=== PATIENT | female | born 1965 | race Caucasian/White ===

== ENCOUNTER 2017-10-12 09:32 | Day surgery (SDC) | payer OTHER ==
[2017-10-12 09:41] VITALS: TEMP 97.9; BMI 26.2
--- NOTE | 2017-10-12 10:38 | PDOC ---
History of Present Illness - General Chief Complaint: Wound Stated Complaint: EVALUATION (PCP SENT) Time Seen by Provider: 10/12/17 10:10 - History of Present Illness Initial Comments: 10/12/17 10:32 51 F with h/o HTN presents to ER for surgical evaluation of R upper back mass. Pt reports feeling a lump in her back for the past year. Denies any pain or redness to the area. States that the lump is soft and slightly mobile. Pt denies any other masses anywhere. No weight loss, no night sweats. Pt has been communicating with surgeon Dr. Guajardo, whose sent pt to ER for possible surgical intervention today. Past History - Past Medical History Allergies/Adverse Reactions: Allergies Allergy/AdvReac Type Severity Reaction Status Date / Time No Known Allergies Allergy Verified 10/12/17 09:37 Home Medications: Ambulatory Orders Hydrochlorothiazide [Hctz -] 12.5 mg PO DAILY 10/12/17 COPD: No DVT: No HTN: Yes - Surgical History Abdominal Surgery: Yes ("ovary removed") Cholecystectomy: Yes - Immunization History Immunization Up to Date: Yes - Suicide/Smoking/Psychosocial Hx Smoking History: Never smoked Have you smoked in the past 12 months: No Information on smoking cessation initiated: No Hx Alcohol Use: No Drug/Substance Use Hx: No Substance Use Type: None Review of Systems - Review of Systems Comments:: 10/12/17 10:37 "GENERAL/CONSTITUTIONAL: No fever or chills. No weakness. HEAD, EYES, EARS, NOSE AND THROAT: No change in vision. No ear pain or discharge. No sore throat. CARDIOVASCULAR: No chest pain or shortness of breath. RESPIRATORY: No cough, wheezing, or hemoptysis. GASTROINTESTINAL: No nausea, vomiting, diarrhea or constipation. GENITOURINARY: No dysuria, frequency, or change in urination. MUSCULOSKELETAL: No joint or muscle swelling or pain. No neck or back pain. SKIN: + Lump to R upper back NEUROLOGIC: No headache, vertigo, loss of consciousness, or change in strength/ sensation. ENDOCRINE: No increased thirst. No abnormal weight change. HEMATOLOGIC/LYMPHATIC: No anemia, easy bleeding, or history of blood clots. ALLERGIC/IMMUNOLOGIC: No hives or skin allergy. " *Physical Exam - Vital Signs Last Vital Signs Temp Pulse Resp BP Pulse Ox 97.9 F 66 17 126/82 100 10/12/17 09:37 10/12/17 09:37 10/12/17 09:37 10/12/17 09:37 10/12/17 09:37 - Physical Exam Comments: 10/12/17 10:38 "GENERAL: Awake, alert, and fully oriented, in no acute distress HEAD: No signs of trauma EYES: PERRLA, EOMI, sclera anicteric, conjunctiva clear ENT: Auricles normal inspection, hearing grossly normal, nares patent, oropharynx clear without exudates. Moist mucosa NECK: Nontender, no stepoffs, Normal ROM, supple, no lymphadenopathy, JVD, or masses LUNGS: Breath sounds equal, clear to auscultation bilaterally. No wheezes, and no crackles HEART: Regular rate and rhythm, normal S1 and S2, no murmurs, rubs or gallops ABDOMEN: Soft, nontender, normoactive bowel sounds. No guarding, no rebound. No masses EXTREMITIES: Normal range of motion, no edema. No clubbing or cyanosis. No cords, erythema, or tenderness NEUROLOGICAL: Cranial nerves II through XII intact. 5/5 strength and sensation in all extremities, Normal speech, normal gait SKIN: 2cm soft mobile mass to R upper back, no tenderness, no fluctuance/ induration/erythema. Skin warm, Dry, normal turgor, no rashes or lesions noted. " Medical Decision Making - Medical Decision Making 10/12/17 10:39 51 F with likely lipoma of upper back x 1 year. Pt with no s/s abscess or infectious process. No s/s of malignancy. Pt was sent in by Dr. Guajardo for OR today. - pre-op labs 10/12/17 10:[address] Guajardo, who has confirmed that pt is to be admitted for surgery. Pt will be admitted to satellite *DC/Admit/Observation/Transfer Diagnosis at time of Disposition: Lipoma - Discharge Dispostion Admit: Yes - Referrals - Patient Instructions - Post Discharge Activity - Attestations Physician Attestion: 10/12/17 10:50 I, Dr. Mayo Issa MD, attest that this document has been prepared under my direction and personally reviewed by me in its entirety. I further attest, that it accurately reflects all work, treatment, procedures and medical decision -making performed by me.
[2017-10-12] MEDS ORDERED: MIDAZOLAM HCL 2 MG/2 ML SINGLE DOSE VIAL ONE (10:50)
[2017-10-12] MEDS ORDERED: LIDOCAINE 1%/EPI 1:100000 (20 ML MULTI DOSE VIAL) ONE (10:54)
[2017-10-12 11:07] LABS: BASO % 0.7 % (0-2.0); EOS % 2.7 % (0-4.5); HEMATOCRIT 39.9 % (32.4-45.2); HEMOGLOBIN 12.6 GM/dL (10.7-15.3); LYMPH % 36.1 % (8-40); MCHC 31.6 g/dl (32.0-36.0); MEAN CELL VOLUME 69.8 fl (80-96); MEAN PLT VOLUME 8.4 fl (7.5-11.1); MONO % 8.6 % (3.8-10.2); NEUT % 51.9 % (42.8-82.8); PLATELET COUNT 267 K/MM3 (134-434); RBC 5.71 M/mm3 (3.60-5.2); RDW 14.4 % (11.6-15.6); WHITE BLOOD COUNT 4.9 K/mm3 (4.0-10.0)
[2017-10-12 11:17] LABS: ALBUMIN 3.9 g/dl (3.4-5.0); ALK PHOS 75 U/L (45-117); ANION GAP 5 (8-16); BILIRUBIN,TOTAL 0.5 mg/dL (0.2-1.0); BLOOD UREA NITROGEN 15 mg/dL (7-18); CALCIUM 9.3 mg/dL (8.5-10.1); CHLORIDE 107 mmol/L (98-107); CO2 29 mmol/L (21-32); CREATININE 0.7 mg/dL (0.55-1.02); GLUCOSE,RANDOM 85 mg/dL (74-106); POTASSIUM 4.1 mmol/L (3.5-5.1); SGOT/AST 19 U/L (15-37); SGPT/ALT 44 U/L (12-78); SODIUM 141 mmol/L (136-145); TOT PROT 7.5 g/dl (6.4-8.2)
[2017-10-12] MEDS ORDERED: ceFAZolin SODIUM 1 GM VIAL IVPB ONE (11:23)
[2017-10-12] MEDS ORDERED: LIDOCAINE 1%/EPI 1:100000 (50 ML MULTI DOSE VIAL) INF ONE (11:26)
[2017-10-12 11:31] LABS: INR 1.2 (0.82-1.09); PROTHROMBIN TIME (PATIENT) 13.6 SEC (9.98-11.88)
[2017-10-12 11:33] LABS: ACTIVATED PTT 31.4 SECONDS (26.9-34.4)
--- NOTE | 2017-10-12 12:43 | EKG ---
Test Reason : Blood Pressure : / mmHG Vent. Rate : 059 BPM Atrial Rate : 059 BPM P-R Int : 166 ms QRS Dur : 082 ms QT Int : 426 ms P-R-T Axes : 050 019 016 degrees QTc Int : 421 ms SINUS BRADYCARDIA OTHERWISE NORMAL ECG WHEN COMPARED WITH ECG OF 22-JAN-2011 11:23, NO SIGNIFICANT CHANGE WAS FOUND Confirmed by ARCADIO COPELAND MD ([id number]) on 10/12/2017 12:42:40 PM Referred By: Confirmed By:ARCADIO COPELAND MD
--- NOTE | 2017-10-12 13:47 | CONSULT ---
Consult Consult Specialty:: Surgery Reason for Consultation:: Back mass with pain - History of Present Illness History of Present Illness: 51 female presents to the ER for back mass causing pain No fevers/chills - History Source History Provided By: Patient Limitations to Obtaining History: No Limitations - Alcohol/Substance Use Hx Alcohol Use: No - Smoking History Smoking history: Never smoked Have you smoked in the past 12 months: No Home Medications - Allergies Allergies/Adverse Reactions: Allergies Allergy/AdvReac Type Severity Reaction Status Date / Time No Known Allergies Allergy Verified 10/12/17 09:37 - Home Medications Home Medications: Ambulatory Orders Hydrochlorothiazide [Hctz -] 12.5 mg PO DAILY 10/12/17 Family Disease History - Family Disease History Family History: Unremarkable Review of Systems - Review of Systems Constitutional: denies: Chills, Fever Eyes: reports: No Symptoms HENT: reports: No Symptoms Neck: reports: No Symptoms Cardiovascular: denies: Chest Pain Respiratory: denies: Cough Gastrointestinal: denies: Abdominal Pain Neurological: denies: Change in LOC Pain Intensity: 2 Physical Exam Vital Signs: Vital Signs Temperature 97.9 F 10/12/17 09:37 Pulse Rate 66 10/12/17 12:32 Respiratory Rate 20 10/12/17 12:32 Blood Pressure 114/71 10/12/17 12:32 O2 Sat by Pulse Oximetry (%) 100 10/12/17 09:37 Constitutional: Yes: Calm Neck: Yes: Supple Cardiovascular: Yes: Regular Rate and Rhythm Respiratory: Yes: CTA Bilaterally Gastrointestinal: Yes: Soft. No: Tenderness Musculoskeletal: Yes: Other (Back mass- 4cm x 3cm Mild tenderness, no erythema) Neurological: Yes: Alert, Oriented Labs: CBC, BMP 10/12/17 10:50 10/12/17 10:50 Problem List - Problems (1) Mass on back Code(s): R22.2 - LOCALIZED SWELLING, MASS AND LUMP, TRUNK Assessment/Plan 51 with back mass causing pain For excision
--- NOTE | 2017-10-12 13:50 | OP ---
Operative Note - Note: Operative Date: 10/12/17 Pre-Operative Diagnosis: Back mass causing pain Operation: Excision of right back mass. 4cm x 3cm Post-Operative Diagnosis: Same as Pre-op Surgeon: Kai Guajardo Anesthesia: General Specimens Removed: Right back mass Estimated Blood Loss (mls): 5 Operative Report Dictated: Yes
[2017-10-12 14:19] VITALS: BP 133/82; PULSE 64
--- NOTE | 2017-10-13 10:04 | OP ---
DATE OF OPERATION: 10/12/217 SURGEON: Yoav Guajardo MD PREOPERATIVE DIAGNOSIS: Right back mass causing pain. POSTOPERATIVE DIAGNOSIS: Right back mass causing pain. PROCEDURE: Excision of right back mass, 4 cm x 3 cm in size. SPECIMEN: Right back mass. ESTIMATED BLOOD LOSS: 5 mL. DRAINS: None. ANESTHESIA: MAC/local. REASON FOR PROCEDURE: This 51-year-old female presented to the emergency room with back mass causing pain. She requested excision and was therefore consented for excision of her right back mass. Risks and benefits of the procedure were explained. These included bleeding, infection, recurrence of the mass, local injury including nerve injury, vessel, injury, PA, DVT, PE, and some other complications. She understood and signed informed consent. DESCRIPTION OF PROCEDURE: Patient was placed in the left lateral decubitus position. The area was prepped and draped in the usual sterile fashion. Time-out was performed. An incision was made over the level of the mass. The skin was incised, and the skin and subcutaneous tissue dissected to the level of the mass. The mass was circumferentially dissected and excised. It appeared that the mass was consistent with fatty tissue/lipoma. The specimen was sent off the field. Hemostasis was achieved using electrocautery. The wound was irrigated and suctioned until dry. Then, 3-0 Vicryl sutures were used to close the deep dermal layer, and 4-0 Biosyn was used to close the subcutaneous tissue. Sterile dressings were applied. Patient tolerated the procedure well, transferred to the recovery room in stable condition. YOAV GUAJARDO M.D. NATALIE/[id number]
--- NOTE | 2017-10-13 17:56 | PATH ---
Surgical Pathology Report Patient Name: [facility]. Rec. #: [id number] /Age/Gender: 1965 (Age: 51) / F Account: [id number] Location: AMBULATORY SURG Taken: 10/12/2017 Received: 10/12/2017 Reported: 10/13/2017 Physicians: Kai Guajardo M.D. Specimen(s) Received RIGHT BACK MASS Clinical History Lipoma Final Diagnosis BACK, RIGHT, MASS, EXCISION: MATURE FIBROADIPOSE TISSUE CONSISTENT WITH LIPOMA. Electronically Signed Britta Giron M.D. Gross Description Received in formalin labeled "right back mass," is a 4.0 x 2.5 x 1.3 cm aggregate of 2 irregular portions of yellow, lobulated adipose tissue. Sectioning reveals homogeneous yellow, smooth fat. No areas of hemorrhage or necrosis are identified. Archivist Military History sections are submitted in 2 cassettes. /10/12/2017 [place]10/12/2017
== END 2017-10-12 14:18 | disposition home or self-care (01) ==
LOC: JER 09:32 → JASUSAT 10:50
PROVIDERS: ATTEND Surgery
PROC: 0JB70ZZ Excision of Back Subcutaneous Tissue and Fascia, Open Approach (ICD-10-PCS; principal; 2017-10-12 11:00)
DX: D48.1 Neoplasm of uncertain behavior of connective and other soft tissue (principal); D17.1 Benign lipomatous neoplasm of skin and subcutaneous tissue of trunk
CPT/HCPCS: 36415; 80053; 85025; 85610; 85730; 86850; 86900; 86901; 88304-TC; 93005; 93010; 99282-25

== ENCOUNTER → 2019-08-12 | Day surgery (SDC) | payer OTHER ==
--- NOTE | 2019-08-13 17:46 | PATH ---
Surgical Pathology Report Patient Name: KEVAN IQBAL [facility]. Rec. #: [id number] /Age/Gender: 1965 (Age: 53) / F Account: [id number] Location: Taken: 08/12/2019 Received: 08/12/2019 Reported: 08/13/2019 Physicians: Coleen Cintron M.D. Specimen(s) Received LEFT BREAST CORE BIOPSY Clinical History Nonpalpable lesion Ultrasound findings: Suspicious Final Diagnosis LEFT BREAST 2-2:30, 0.6 CM MASS, ULTRASOUND GUIDED CORE BIOPSY: FRAGMENTS OF BENIGN LYMPH NODE TISSUE. SEPARATE FRAGMENTS OF BENIGN BREAST TISSUE WITH FOCAL STROMAL FIBROSIS. Electronically Signed Katherine Bernal M.D. Gross Description Received in formalin labeled "left breast 2:00-2:30," are 4 paez-yellow, cylindrical portions of fibroadipose tissue ranging from 0.7-1.2 cm in length and averaging 0.1 cm in diameter. The specimens are submitted in toto in one cassette. Time to formalin fixation: Less than one minute Total formalin fixation time: Approximately 6 hours. /08/12/2019 [facility] [place]/08/12/2019
== END | disposition home or self-care (01) ==
LOC: JMAMMO-SUR 11:19
PROVIDERS: ATTEND Internal Medicine
PROC: 0H9U3ZX Drainage of Left Breast, Percutaneous Approach, Diagnostic (ICD-10-PCS; principal; 2019-08-12)
DX: N60.32 Fibrosclerosis of left breast (principal)
CPT/HCPCS: 19083; 87899; 88305-TC; A4648

== ENCOUNTER 2019-12-16 14:55 | Emergency (ER) | payer OTHER ==
[2019-12-16 15:14] VITALS: BMI 23.8
--- NOTE | 2019-12-16 15:16 | EKG ---
Test Reason : Blood Pressure : / mmHG Vent. Rate : 065 BPM Atrial Rate : 065 BPM P-R Int : 154 ms QRS Dur : 082 ms QT Int : 414 ms P-R-T Axes : 040 -04 007 degrees QTc Int : 430 ms NORMAL SINUS RHYTHM NORMAL ECG NO PREVIOUS ECGS AVAILABLE Confirmed by Rochelle Castelan ([id number]) on 12/16/2019 3:16:36 PM Referred By: ASHLEY BOGGS Confirmed By:Rochelle Castelan
[2019-12-16] MEDS ORDERED: ACETAMINOPHEN 1000 MG/100 ML VIAL (NON FORMULARY) IVPB ONE (15:18)
[2019-12-16] MEDS ORDERED: METOCLOPRAMIDE HCL INJECTION 10 MG/2 ML VIAL IVPUSH ONE (15:18)
[2019-12-16] MEDS ORDERED: SODIUM CHLORIDE 0.9% 1000 ML INFUS.BAG IV ONE (15:18)
[2019-12-16] MEDS ORDERED: ALBUTEROL SO4 2.5/IPRATROPIUM 0.5 INH SOL 3 ML VIAL.NEB. NEB ONE ×2 (15:18→15:42)
[2019-12-16] MEDS ORDERED: ACETAMINOPHEN INJECTION 100 ML IVPB ONE (15:42)
[2019-12-16] MEDS ORDERED: METOCLOPRAMIDE HCL INJECTION 10 MG/2 ML VIAL ONE (15:42)
[2019-12-16 15:43] LABS: BASO % 0.5 % (0-2.0); EOS % 4.6 % (0-4.5); HEMATOCRIT 36.6 % (32.4-45.2); HEMOGLOBIN 11.7 GM/dl (10.7-15.3); LYMPH % 37.5 % (8-40); MCH 23.5 pg (25.7-33.7); MCHC 32.1 g/dl (32.0-36.0); MEAN CELL VOLUME 73.2 fl (80-96); MEAN PLT VOLUME 9.1 fl (7.5-11.1); MONO % 6.2 % (3.8-10.2); NEUT % 51.2 % (42.8-82.8); PLATELET COUNT 235 K/MM3 (134-434); RDW 13.2 % (11.6-15.6); WHITE BLOOD COUNT 4.8 K/mm3 (4.0-10.8)
[2019-12-16 15:52] LABS: ALBUMIN 4.1 g/dl (3.4-5.0); BILIRUBIN,TOTAL 0.7 mg/dl (0.2-1); CALCIUM 9.4 mg/dl (8.5-10); CREATININE 0.7 mg/dl (0.55-1.3); POTASSIUM 3.8 mmol/L (3.5-5.1); TOT PROT 6.9 g/dl (6.4-8.2)
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
[2019-12-16 16:49] LABS: ARTERIAL BLD GAS O2 SATURATION 99.4 % (95-98); ARTERIAL BLOOD GAS BASE EXCESS 3.4 meq/l (-2-2); ARTERIAL BLOOD GAS PCO2 43.8 mmHg (35-45); ARTERIAL BLOOD GAS PO2 283 mmHg (80-100); ARTERIAL BLOOD GAS pH 7.42 (7.35-7.45); CARBOXYHEMOGLOBIN 0.9 % (0-2)
[2019-12-16 17:28] VITALS: BP 116/65; PULSE 79; TEMP 98.2
== END 2019-12-16 17:30 | disposition home or self-care (01) ==
LOC: FER 14:55 → MERGE 14:55 → FER 17:30
PROC: 3E033NZ Introduction of Analgesics, Hypnotics, Sedatives into Peripheral Vein, Percutaneous Approach (ICD-10-PCS; principal; 2019-12-16)
PROC: 3E0F7GC Introduction of Other Therapeutic Substance into Respiratory Tract, Via Natural or Artificial Opening (ICD-10-PCS; 2019-12-16)
DX: J70.5 Respiratory conditions due to smoke inhalation (principal)
CPT/HCPCS: 36415; 36600; 71046-TC-FY; 80053; 81003; 82375; 82550; 82803; 83050; 84484; 84703; 85025; 93005; 99285-25; J0131; J7030